=== PATIENT | female | born 1965 ===

== ENCOUNTER 2018-11-24 08:04 | Outpatient (CLI) | payer OTHER ==
[~2018-11-24] VITALS: Ht 157.5 cm; Wt 67.1 kg
[2018-11-24] MEDS ORDERED: MURINE EAR DROP15 ML OT (12:19)
== END 2018-11-24 08:20 | disposition home or self-care (01) ==
LOC: OFIC 805 08:04
DX: R22.1 Localized swelling, mass and lump, neck (principal); J31.0 Chronic rhinitis; E04.1 Nontoxic single thyroid nodule; H61.23 Impacted cerumen, bilateral

== ENCOUNTER 2018-12-22 07:52 | Outpatient (CLI) | payer OTHER ==
[~2018-12-22] VITALS: Ht 152.4 cm; Wt 67.1 kg
[~2018-12-22 07:52] MED LIST: MURINE EAR DROP15 ML OT
== END 2018-12-22 08:15 | disposition home or self-care (01) ==
LOC: OFIC 805 07:52
DX: R22.1 Localized swelling, mass and lump, neck (principal); J31.0 Chronic rhinitis; E04.1 Nontoxic single thyroid nodule; H61.23 Impacted cerumen, bilateral

== ENCOUNTER 2019-01-04 05:55 | Day surgery (SDC) | payer OTHER ==
[2019-01-04] MEDS ORDERED: PAIN RELIEVER500 M1 PO (09:13)
== END 2019-01-04 12:00 | disposition home or self-care (01) ==
LOC: CIR.AMB 05:55
DX: D17.0 Benign lipomatous neoplasm of skin and subcutaneous tissue of head, face and neck (principal)

== ENCOUNTER 2019-01-12 08:51 | Outpatient (CLI) | payer OTHER ==
[~2019-01-12 08:51] MED LIST changes: +PAIN RELIEVER500 M1 PO
== END 2019-01-12 09:10 | disposition home or self-care (01) ==
LOC: OFIC 805 08:51
DX: R22.1 Localized swelling, mass and lump, neck (principal); J31.0 Chronic rhinitis; E04.1 Nontoxic single thyroid nodule; H61.23 Impacted cerumen, bilateral